=== PATIENT | male | born 1965 | race Caucasian/White ===

== ENCOUNTER → 2016-07-09 | Outpatient (CLI) | payer MEDICARE, BC ==
[2016-07-09 10:48] LABS: Basophils # (A) 0.1 k/uL (0-0.2); Basophils % (A) 1 %; CH 33.8; CHCM 35.4; Eosinophils # (A) 0.3 k/uL (0-0.7); Eosinophils % (A) 3 %; HCT 51.8 % (39.0-53.0); HDW 2.63; HGB 17.6 gm/dL (13.0-17.5); Luc # (Auto) 0.11; Luc % (Auto) 1; Lymphocytes # (A) 2.8 k/uL (1.0-4.8); Lymphocytes % (A) 28 %; MCH 32.5 pg (25.0-35.0); MCHC 33.9 g/dL (31.0-37.0); Mean Platelet Volume 7.4; Monocytes # (A) 0.5 k/uL (0-1.0); Monocytes % (A) 5 %; Neutrophils # (A) 6.2 k/uL (1.3-7.7); Neutrophils % (A) 62 %; RDW 12.6 % (11.5-15.5); WBC (Perox) 10.34
[2016-07-09 11:02] LABS: ALT 154 U/L (21-72); AST 110 U/L (17-59); Alkaline Phosphatase 103 U/L (38-126); Anion Gap 13 mmol/L; Blood Urea Nitrogen 14 mg/dL (9-20); Calcium 9.8 mg/dL (8.4-10.2); Carbon Dioxide 26 mmol/L (22-30); Chloride 104 mmol/L (98-107); Glucose 143 mg/dL (74-99); Non-African American GFR(MDRD) >60 (>60 ml/min/1.73 sqM); Potassium 3.8 mmol/L (3.5-5.1); Sodium 143 mmol/L (137-145); Total Bilirubin 0.8 mg/dL (0.2-1.3); Total Protein 7.5 g/dL (6.3-8.2)
[2016-07-09 11:33] LABS: Hepatitis B Surface Ag Index 0.06
[2016-07-09 11:39] LABS: Hepatitis B Core IgM Index 0.04
[2016-07-09 11:50] LABS: Hepatitis C Virus IgG Index 0.02
[2016-07-09 11:52] LABS: Hepatitis C Virus IgG Ab Negative (Negative)
[2016-07-10 16:00] LABS: LOG HIV Copies/mL <1.60 (<1.60)
== END | disposition home or self-care (01) ==
LOC: LABWHC1 09:52
PROVIDERS: ATTEND Internal Medicine Infectious Disease
DX: B20 Human immunodeficiency virus [HIV] disease (principal)
CPT/HCPCS: 36415; 80053; 80074; 84378; 85025; 86780; 87536

== ENCOUNTER → 2016-12-17 | Outpatient (CLI) | payer MEDICARE, BC ==
[2016-12-17 15:37] LABS: ALT 146 U/L (21-72); AST 124 U/L (17-59); Alkaline Phosphatase 154 U/L (38-126); Anion Gap 18 mmol/L; Blood Urea Nitrogen 12 mg/dL (9-20); Calcium 9.4 mg/dL (8.4-10.2); Carbon Dioxide 19 mmol/L (22-30); Chloride 103 mmol/L (98-107); Glucose 174 mg/dL (74-99); Non-African American GFR(MDRD) >60 (>60 ml/min/1.73 sqM); Potassium 3.7 mmol/L (3.5-5.1); Sodium 140 mmol/L (137-145); Total Bilirubin 0.7 mg/dL (0.2-1.3); Total Protein 7.8 g/dL (6.3-8.2)
[2016-12-17 15:45] LABS: Basophils # (A) 0.1 k/uL (0-0.2); Basophils % (A) 1 %; CH 33.6; CHCM 36.3; Eosinophils # (A) 0.8 k/uL (0-0.7); Eosinophils % (A) 9 %; HCT 45.6 % (39.0-53.0); Luc # (Auto) 0.28; Luc % (Auto) 3; Lymphocytes # (A) 2.5 k/uL (1.0-4.8); Lymphocytes % (A) 26 %; MCH 34.6 pg (25.0-35.0); MCHC 37.3 g/dL (31.0-37.0); MCV 92.9 fL (80.0-100.0); Mean Platelet Volume 6.8; Monocytes # (A) 0.5 k/uL (0-1.0); Monocytes % (A) 5 %; Neutrophils # (A) 5.3 k/uL (1.3-7.7); Neutrophils % (A) 56 %; RBC 4.91 m/uL (4.30-5.90); RDW 12.1 % (11.5-15.5); WBC 9.5 k/uL (3.8-10.6); WBC (Perox) 9.58
[2016-12-18 13:17] LABS: LOG HIV Copies/mL <1.60 (<1.60)
== END | disposition home or self-care (01) ==
LOC: LABWHC1 15:00
PROVIDERS: ATTEND Internal Medicine Infectious Disease
DX: B20 Human immunodeficiency virus [HIV] disease (principal)
CPT/HCPCS: 36415; 80053; 85025; 86360; 87536

== ENCOUNTER → 2017-01-01 | Outpatient (CLI) | payer MEDICARE, BC ==
--- NOTE | 2017-01-02 16:45 | CONS ---
DATE OF SERVICE: 01/01/2017 This patient is a 51-year-old gentleman who has been evaluated in the sleep center for sleep problems. HISTORY OF PRESENT ILLNESS/SLEEP-WAKE EVALUATION: The patient's usual sleep schedule is from around 11 p.m. and he has difficulties falling asleep, but when he falls asleep he may sleep until the next day at 12 noon. No TV in bedroom. He has difficulty taking naps during the day because of anxiety, but sometimes he takes one nap. He has twitching of his legs at night and some episodes of choking. He snores, has episodes of panic attacks, sweating, sleeptalking and sometimes cns-zu-kkyqo movements during sleep with his arms. [place] Sleepiness Scale is 6. Past medical history of positive for: 1. HIV-positive for 20 years. Recently viral load undetectable. CD4 count around 1100, according to the patient. 2. Positive history of anxiety, depression. 3. Hypertension. 4. Acid reflux. 5. Herniated back disc. 6. COPD. PAST SURGICAL HISTORY: Hemorrhoidectomy. SOCIAL HISTORY: Positive for smoking for about 15 years; quit 4 years ago. Alcohol consumption none. On treatment with medical marijuana at bedtime, which helps him fall asleep. REVIEW OF SYSTEMS: No fevers. No double vision. No recent chest pain. No shortness of breath. No abdominal pain. No bleeding episodes. No blood in urine. No seizure episodes. Episodes of anxiety with increasing heart rate. Out- of-dream movements. Sometimes very long periods of sleep, for more than 12 hours. Difficulties paying attention. Problems with memory, concentration, irritability, depression, anxiety. FAMILY HISTORY: Hypertension, heart problems, hyperlipidemia, stroke, arthritis , lung problems, snoring, pneumonia, headaches, insomnia, acid reflux, ulcers, mental illness. MEDICATIONS: 1. Remeron. 2. Fluoxetine. 3. Isentress. 4. Prilosec. 5. Truvada. 6. Amlodipine. 7. Medical marijuana. PHYSICAL EXAM: The patient is a pleasant 51-year-old gentleman without distress. VITAL SIGNS: Blood pressure 138/99, heart rate 140, respiratory rate 20. Height 5 feet 10 inches. Weight 175.2. BMI 25.1. Neck 14-3/4 inches in circumference. Temperature 98.8. Oxygen saturation at room air 96%. GENERAL: A pleasant patient without distress. HEENT: PERRLA. EOMI. Evaluation of oropharynx showed tongue protrudes midline. Moderately low position of soft palate. Nose is slightly asymmetric. Some restriction of nasal breathing. NECK: Supple. No JVD. Thyroid is not palpable. LUNGS: Clear to percussion and to auscultation. Good air exchange. No wheezing or rhonchi. HEART: S1, S2 regular. Significant tachycardia. ABDOMEN: Soft and non-tender. Bowel sounds are present. No organomegaly appreciated. EXTREMITIES: No clubbing or cyanosis. SENIOR BENEFITS MANAGER: Awake, alert and oriented x3. Cranial nerves 2 through 7 are intact. There is no fasciculation or atrophy noted. No focal deficits observed. IMPRESSION: 1. Difficulties initiating sleep secondary to anxiety. 2. Snoring, moderately low position of soft palate, tiredness during the day, restriction of nasal breathing, awakenings with episodes of choking during sleep ; rule out obstructive sleep apnea/hypopnea syndrome. 3. Burning sensation in the feet while falling asleep; possible restless leg syndrome. 4. History of twitching and kicking at night; possible PLMS. 5. Episodes of qrw-uh-[id number] behavior with moving of his hands; possible REM sleep behavioral disorder. 6. Hypertension. 7. Acid reflux. 8. History of herniated disc in the back. 9. Status post hemorrhoidectomy. PLAN: 1. Polysomnography for evaluation of patients breathing during sleep. 2. CPAP/BiPAP titration if sleep study confirms obstructive sleep apnea/ hypopnea syndrome. 3. Preferable position during sleep on the side. 4. No driving if feeling any sleepiness. Patient is aware of civil and criminal liability for unsafe driving. 5. I will see this patient for follow-up visit to explain results of the testing and follow-up plan. 6. Psychological techniques for treatment of insomnia additionally. Thank you very much for referring this patient for consultation. Sincerely, Henri Rhodes. , PhD, FAASM. Diplomat of [employer], Sleep Medicine Board by [employer] Systems Development Manager of [facility]
== END ==
LOC: SLEEP 15:38
PROVIDERS: ATTEND Internal Medicine
DX: G47.9 Sleep disorder, unspecified (principal); R06.83 Snoring; I10 Essential (primary) hypertension; K21.9 Gastro-esophageal reflux disease without esophagitis; F41.9 Anxiety disorder, unspecified; Z98.890 Other specified postprocedural states; Z79.899 Other long term (current) drug therapy
CPT/HCPCS: 99211

== ENCOUNTER → 2017-04-08 | Outpatient (CLI) | payer MEDICARE, BC ==
--- NOTE | 2017-04-08 16:10 | PN ---
PROGRESS NOTE This patient is a 52-year-old gentleman who has been followed in the sleep center for treatment of obstructive sleep apnea-hypopnea syndrome. Recently the patient had a polysomnogram and CPAP titration. We discussed results of the sleep study with the patient in detail. He has severe sleep apnea with apnea-hypopnea index 33.2 with oxygen desaturation to 89%. He was started on treatment with CPAP and uses the equipment. He does have problems with the heated humidity; sometimes he thinks that humidity temperature is too high. I checked his CPAP unit. CPAP pressure is 10 cm of water. Usage is 27/30 nights for more than 4 hours. Average usage is 8.9 hours. Leak is 8 L/minute, which is totally within normal range. Apnea-hypopnea index for the last month is only 2.5. MEDICATIONS: 1. Remeron. 2. Fluoxetine. 3. Isentress. 4. Prilosec. 5. Truvada. 6. Amlodipine. 7. Medical marijuana. PHYSICAL EXAMINATION: Patient is in some distress related to anxiety. VITAL SIGNS: BP 151/86, HR 122, RR 18, weight 178.8, temperature 98.5, oxygen saturation at room air 98%. HEENT: PERRLA, EOMI. Evaluation of oropharynx showed tongue protrudes midline; low position of soft palate. NECK: Supple. No JVD. Thyroid is not palpable. LUNGS: Clear to percussion and to auscultation. Good air exchange. No wheezing or rhonchi. HEART: S1, S2. Tachycardia. ABDOMEN: Soft, non-tender. Bowel sounds present. EXTREMITIES: No clubbing or cyanosis. BUSINESS SERVICES MANAGER: Awake, alert and oriented x3. Cranial nerves 2 to 7 intact. There is no fasciculation or atrophy noted. No focal deficits observed. IMPRESSION: 1. Severe obstructive sleep apnea-hypopnea syndrome, under control with CPAP at 10 cm of water. Patient demonstrated close to 100% compliance with treatment, benefitting from treatment. 2. Severe periodic limb movements during sleep study. 3. History of HIV positive for about 20 years. Recently viral load undetectable. 4. History of anxiety and depression. 5. Hypertension. 6. Acid reflux. 7. Herniated back disc. 8. Chronic obstructive pulmonary disease. PLAN: 1. Patient should continue to use his CPAP equipment every night for the whole night. 2. I will maintain his prescription for all necessary CPAP supplies. 3. No driving if feeling any sleepiness. 4. I will adjust humidifier to the lower level. 5. Follow-up visit in 1 year, or earlier if patient has any problems with usage of CPAP. Thank you very much for allowing me to participate in management of your patient. Sincerely, Henri Rhodes MD, PhD, FAASM Diplomat of [place] [employer] [employer] Boiler Or Engine Operator of [facility] [place] MMODL / IJN: [id number] /
== END ==
LOC: SLEEP 14:00
PROVIDERS: ATTEND Internal Medicine
DX: G47.33 Obstructive sleep apnea (adult) (pediatric) (principal); G47.61 Periodic limb movement disorder; F41.9 Anxiety disorder, unspecified; F32.9 Major depressive disorder, single episode, unspecified; I10 Essential (primary) hypertension; K21.9 Gastro-esophageal reflux disease without esophagitis; J44.9 Chronic obstructive pulmonary disease, unspecified; Z79.899 Other long term (current) drug therapy

== ENCOUNTER → 2017-04-15 | Outpatient (CLI) | payer MEDICARE, BC ==
[2017-04-15 14:09] LABS: ALT 212 U/L (21-72); AST 131 U/L (17-59); Alkaline Phosphatase 183 U/L (38-126); Anion Gap 14 mmol/L; Blood Urea Nitrogen 13 mg/dL (9-20); Calcium 9.9 mg/dL (8.4-10.2); Carbon Dioxide 21 mmol/L (22-30); Chloride 102 mmol/L (98-107); Glucose 345 mg/dL (74-99); Non-African American GFR(MDRD) >60 (>60 ml/min/1.73 sqM); Potassium 4.3 mmol/L (3.5-5.1); Sodium 137 mmol/L (137-145); Total Bilirubin 0.5 mg/dL (0.2-1.3); Total Protein 7.9 g/dL (6.3-8.2)
[2017-04-15 14:23] LABS: Basophils # (A) 0.1 k/uL (0-0.2); Basophils % (A) 1 %; CH 33.7; CHCM 35.1; Eosinophils # (A) 0.2 k/uL (0-0.7); Eosinophils % (A) 3 %; HCT 52.4 % (39.0-53.0); HDW 2.63; HGB 17.5 gm/dL (13.0-17.5); Luc # (Auto) 0.14; Luc % (Auto) 2; Lymphocytes # (A) 2.6 k/uL (1.0-4.8); Lymphocytes % (A) 30 %; MCHC 33.3 g/dL (31.0-37.0); MCV 96.1 fL (80.0-100.0); Mean Platelet Volume 7.1; Monocytes # (A) 0.4 k/uL (0-1.0); Monocytes % (A) 4 %; Neutrophils # (A) 5.1 k/uL (1.3-7.7); Neutrophils % (A) 60 %; RBC 5.45 m/uL (4.30-5.90); RDW 12.8 % (11.5-15.5); WBC 8.4 k/uL (3.8-10.6); WBC (Perox) 7.83
[2017-04-16 15:04] LABS: LOG HIV Copies/mL <1.60 (<1.60)
== END | disposition home or self-care (01) ==
LOC: LABWHC1 13:10
PROVIDERS: ATTEND Internal Medicine Infectious Disease
DX: B20 Human immunodeficiency virus [HIV] disease (principal)
CPT/HCPCS: 36415; 80053; 80074; 85025; 86360; 87536

== ENCOUNTER → 2017-05-26 | Outpatient (CLI) | payer MEDICARE, BC ==
[2017-05-26 11:31] LABS: ALT 178 U/L (21-72); AST 139 U/L (17-59); Alkaline Phosphatase 94 U/L (38-126); Anion Gap 14 mmol/L; Blood Urea Nitrogen 15 mg/dL (9-20); Calcium 9.9 mg/dL (8.4-10.2); Carbon Dioxide 22 mmol/L (22-30); Chloride 103 mmol/L (98-107); Glucose 185 mg/dL (74-99); Non-African American GFR(MDRD) >60 (>60 ml/min/1.73 sqM); Potassium 3.7 mmol/L (3.5-5.1); Sodium 139 mmol/L (137-145)
== END | disposition home or self-care (01) ==
LOC: LABWHC1 10:45
PROVIDERS: ATTEND Internal Medicine Infectious Disease
DX: B20 Human immunodeficiency virus [HIV] disease (principal)
CPT/HCPCS: 36415; 80053

== ENCOUNTER → 2017-08-18 | Outpatient (CLI) | payer MEDICARE, BC ==
[2017-08-18 07:02] LABS: ALT 118 U/L (21-72); AST 80 U/L (17-59); Albumin 4.3 g/dL (3.5-5.0); Alkaline Phosphatase 76 U/L (38-126); Anion Gap 13 mmol/L; Blood Urea Nitrogen 16 mg/dL (9-20); Calcium 9.8 mg/dL (8.4-10.2); Carbon Dioxide 27 mmol/L (22-30); Chloride 105 mmol/L (98-107); Cholesterol 239 mg/dL (<200); Glucose 124 mg/dL (74-99); HDL Cholesterol 46 mg/dL (40-60); LDL Cholesterol,Calculated 152 mg/dL (0-99); Sodium 145 mmol/L (137-145); Total Bilirubin 0.6 mg/dL (0.2-1.3); Triglycerides 204 mg/dL (<150)
[2017-08-18 07:07] LABS: Potassium 4.3 mmol/L (3.5-5.1)
[2017-08-18 12:25] LABS: Hemoglobin A1C 6.6 % (4.0-6.0)
== END | disposition home or self-care (01) ==
LOC: LABWHC1 06:32
PROVIDERS: ATTEND Internal Medicine Endocrinology, Diabetes & Metabolism
DX: E11.65 Type 2 diabetes mellitus with hyperglycemia (principal)
CPT/HCPCS: 36415; 80053; 80061; 82043; 82570; 83036

== ENCOUNTER → 2017-09-04 | Outpatient (CLI) | payer MEDICARE, BC ==
[2017-09-04 16:28] LABS: Basophils # (A) 0.1 k/uL (0-0.2); Basophils % (A) 1 %; Eosinophils # (A) 0.3 k/uL (0-0.7); Eosinophils % (A) 3 %; HCT 46.7 % (39.0-53.0); HGB 16.1 gm/dL (13.0-17.5); Lymphocytes # (A) 3.2 k/uL (1.0-4.8); Lymphocytes % (A) 30 %; MCH 32.2 pg (25.0-35.0); MCHC 34.4 g/dL (31.0-37.0); MCV 93.8 fL (80.0-100.0); Mean Platelet Volume 7.1; Monocytes # (A) 0.6 k/uL (0-1.0); Monocytes % (A) 5 %; Neutrophils # (A) 6.2 k/uL (1.3-7.7); Neutrophils % (A) 59 %; Platelet Count 296 k/uL (150-450); RBC 4.99 m/uL (4.30-5.90); RDW 12.2 % (11.5-15.5); WBC 10.4 k/uL (3.8-10.6)
[2017-09-04 17:01] LABS: ALT 166 U/L (21-72); AST 125 U/L (17-59); Albumin 4.6 g/dL (3.5-5.0); Alkaline Phosphatase 71 U/L (38-126); Anion Gap 12 mmol/L; Blood Urea Nitrogen 18 mg/dL (9-20); Carbon Dioxide 26 mmol/L (22-30); Chloride 103 mmol/L (98-107); Glucose 109 mg/dL (74-99); Potassium 4.2 mmol/L (3.5-5.1); Sodium 141 mmol/L (137-145); Total Bilirubin 0.6 mg/dL (0.2-1.3); Total Protein 7.5 g/dL (6.3-8.2)
[2017-09-05 07:50] LABS: T4/T8 Ratio (CD4:CD8) 1.8 (1.0-3.7)
[2017-09-08 08:29] LABS: HIV-1 RNA Not detected (Not detected); HIV-1 RNA, Quant <40 Copies/mL (<40)
== END ==
LOC: LABWHC1 16:04
PROVIDERS: ATTEND Internal Medicine Infectious Disease
DX: B20 Human immunodeficiency virus [HIV] disease (principal)
CPT/HCPCS: 36415; 80053; 85025; 86360; 87536

== ENCOUNTER → 2018-04-15 | Outpatient (CLI) | payer MEDICARE, BC ==
[2018-04-15 11:30] LABS: Basophils # (A) 0.1 k/uL (0-0.2); Basophils % (A) 1 %; Eosinophils # (A) 0.3 k/uL (0-0.7); Eosinophils % (A) 4 %; HCT 50.3 % (39.0-53.0); Lymphocytes % (A) 29 %; MCH 32.5 pg (25.0-35.0); MCHC 33.8 g/dL (31.0-37.0); MCV 95.9 fL (80.0-100.0); Monocytes # (A) 0.4 k/uL (0-1.0); Monocytes % (A) 6 %; Neutrophils # (A) 4.2 k/uL (1.3-7.7); Neutrophils % (A) 59 %; Platelet Count 248 k/uL (150-450); RBC 5.24 m/uL (4.30-5.90); RDW 12.2 % (11.5-15.5); WBC 7.1 k/uL (3.8-10.6)
[2018-04-15 11:40] LABS: ALT 145 U/L (21-72); AST 127 U/L (17-59); Albumin 4.5 g/dL (3.5-5.0); Alkaline Phosphatase 105 U/L (38-126); Anion Gap 10 mmol/L; Blood Urea Nitrogen 17 mg/dL (9-20); Carbon Dioxide 23 mmol/L (22-30); Chloride 104 mmol/L (98-107); Cholesterol 234 mg/dL (<200); Glucose 228 mg/dL (74-99); HDL Cholesterol 42 mg/dL (40-60); LDL Cholesterol,Calculated 142 mg/dL (0-99); Potassium 4.3 mmol/L (3.5-5.1); Sodium 137 mmol/L (137-145); Total Bilirubin 0.7 mg/dL (0.2-1.3); Total Protein 7.3 g/dL (6.3-8.2); Triglycerides 252 mg/dL (<150)
[2018-04-16 09:22] LABS: T4/T8 Ratio (CD4:CD8) 1.5 (1.0-3.7)
[2018-04-16 13:47] LABS: HIV-1 RNA Not detected (Not detected); HIV-1 RNA, Quant <40 Copies/mL (<40)
== END ==
LOC: LABWHC1 10:57
PROVIDERS: ATTEND Internal Medicine Endocrinology, Diabetes & Metabolism
DX: B20 Human immunodeficiency virus [HIV] disease (principal); E11.65 Type 2 diabetes mellitus with hyperglycemia
CPT/HCPCS: 36415; 80053; 80061; 82043; 82570; 83036; 85025; 86360; 87536

== ENCOUNTER → 2018-04-29 | Outpatient (CLI) | payer MEDICARE, BC ==
--- NOTE | 2018-04-29 16:36 | PN ---
PROGRESS NOTE DATE OF SERVICE: 04/29/2019 This patient is a 53-year-old gentleman who has been followed in the sleep center for treatment of obstructive sleep apnea-hypopnea syndrome presently. I saw the patient one year ago. At that time patient demonstrated great compliance with treatment with CPAP and did not have significant problem. Presently he has a full-face mask but cannot use it. He has discomfort with that and has difficulties with exhalation. MEDICATIONS: 1. Remeron. 2. Fluoxetine. 3. Prilosec. 4. Amlodipine. [place] Sleepiness Scale today is 11. PHYSICAL EXAMINATION: GENERAL: A pleasant patient in no distress. VITAL SIGNS: BP 149/98, HR around 100, RR 16, height 5 feet 8-1/2 inches, weight 181, body mass index 27.1, temperature 97.4, oxygen saturation at room air 95%. HEENT: PERRLA, EOMI. Evaluation of oropharynx showed tongue protrudes midline. Low position of soft palate. NECK: Supple. No JVD. Thyroid is not palpable. LUNGS: Clear to percussion and to auscultation. Good air exchange. No wheezing or rhonchi. HEART: S1, S2 regular. No murmurs, gallops or rubs. ABDOMEN: Soft and nontender. Bowel sounds are present. No organomegaly. EXTREMITIES: No clubbing or cyanosis. JAILER: Awake, alert, and oriented X3. Cranial nerves 2 to 7 intact. There is no fasciculation or atrophy. noted. No focal deficits observed. IMPRESSION: 1. Obstructive sleep apnea-hypopnea syndrome in severe range. Presently patient has some difficulties with using CPAP. 2. History of HIV positive for about 20 years. 3. History of anxiety and depression. 4. Hypertension. 5. Acid reflux. 6. History of chronic obstructive pulmonary disease. 7. Back problems. I reviewed results of the previous CPAP titration. PLAN: 1. I decreased pressure in the machine to 9 cm of water. 2. I increased time of RAMP to 45 minutes. 3. Patient was fitted with a nasal pillow mask. 4. Patient will continue to use CPAP equipment every night with a nasal pillow mask and chinstrap. 5. No driving if feeling any sleepiness. 6. Sleep hygiene with regular time in bed for at least 8 hours. Thank you very much for allowing me to participate in the management of your patient. Sincerely, Henri Rhodes MD, PhD, FAASM Diplomat of [place] [employer] [place] [employer] Medicine Manager Wireless of [facility] [place] MMLILY / JOSE A: [id number] /
== END | disposition home or self-care (01) ==
LOC: SLEEP 15:05
PROVIDERS: ATTEND Internal Medicine
DX: G47.33 Obstructive sleep apnea (adult) (pediatric) (principal); I10 Essential (primary) hypertension; F32.9 Major depressive disorder, single episode, unspecified; F41.9 Anxiety disorder, unspecified; K21.9 Gastro-esophageal reflux disease without esophagitis; M53.9 Dorsopathy, unspecified; Z21 Asymptomatic human immunodeficiency virus [HIV] infection status; Z87.09 Personal history of other diseases of the respiratory system; Z99.89 Dependence on other enabling machines and devices; Z79.899 Other long term (current) drug therapy

== ENCOUNTER → 2018-07-09 | Outpatient (CLI) | payer MEDICARE, BC ==
[2018-07-09 13:30] LABS: Basophils # (A) 0.1 k/uL (0-0.2); Basophils % (A) 1 %; Eosinophils # (A) 0.2 k/uL (0-0.7); Eosinophils % (A) 2 %; HCT 48.4 % (39.0-53.0); Lymphocytes % (A) 20 %; MCH 31.6 pg (25.0-35.0); MCV 95.7 fL (80.0-100.0); Mean Platelet Volume 6.7; Monocytes # (A) 0.5 k/uL (0-1.0); Monocytes % (A) 5 %; Neutrophils % (A) 71 %; Platelet Count 275 k/uL (150-450); RBC 5.06 m/uL (4.30-5.90); RDW 12.8 % (11.5-15.5)
[2018-07-09 20:26] LABS: Albumin 4.7 g/dL (3.80-4.90); Albumin/Globulin Ratio 2.47 (1.20-2.10); Anion Gap 11.6 mmol/L (4.00-12.00); Calcium 9.6 mg/dL (8.7-10.3); Carbon Dioxide 23.4 mmol/L (21.6-31.8); Globulin 1.9 g/dL (1.6-3.3); Potassium 4.2 mmol/L (3.5-5.5); Total Bilirubin 0.4 mg/dL (0.2-1.2); Total Protein 6.6 g/dL (6.2-8.2)
[2018-07-12 14:37] LABS: HIV-1 RNA Not detected (Not detected); HIV-1 RNA, Quant <40 Copies/mL (<40)
== END ==
LOC: LABWHC1 12:40
PROVIDERS: ATTEND Internal Medicine Infectious Disease
DX: B20 Human immunodeficiency virus [HIV] disease (principal)
CPT/HCPCS: 36415; 80053; 85025; 86360; 87536

== ENCOUNTER → 2018-08-16 | Outpatient (CLI) | payer MEDICARE, BC ==
[2018-08-16 18:41] LABS: Albumin 4.5 g/dL (3.80-4.90); Albumin/Globulin Ratio 2.37 (1.60-3.17); Anion Gap 8.8 mmol/L (4.00-12.00); Calcium 9.7 mg/dL (8.7-10.3); Carbon Dioxide 26.2 mmol/L (21.6-31.8); Globulin 1.9 g/dL (1.6-3.3); LDL Cholesterol,Calculated 119.4 mg/dL (0.0-131.0); Potassium 4.6 mmol/L (3.5-5.5); Total Bilirubin 0.5 mg/dL (0.3-1.2); Total Protein 6.4 g/dL (6.2-8.2); VLDL Calculation 63.6 mg/dL (5.00-40.00)
[2018-08-16 18:55] LABS: Hemoglobin A1C 7.9 % (4.0-6.0)
== END | disposition home or self-care (01) ==
LOC: LABWHC1 09:18
PROVIDERS: ATTEND Internal Medicine Endocrinology, Diabetes & Metabolism
DX: E11.65 Type 2 diabetes mellitus with hyperglycemia (principal)
CPT/HCPCS: 36415; 80053; 80061; 82043; 82570; 83036; 84443

== ENCOUNTER → 2018-10-21 | Outpatient (CLI) | payer MEDICARE, BC | END | disposition home or self-care (01) | LOC: LABWHC1 08:08 | PROVIDERS: ATTEND Internal Medicine Infectious Disease | DX: E11.9 Type 2 diabetes mellitus without complications (principal) | CPT/HCPCS: 36415; 82947 ==

== ENCOUNTER → 2018-11-15 | Outpatient (CLI) | payer MEDICARE, BC ==
[2018-11-15 12:13] LABS: Basophils % (A) 1 %; Eosinophils # (A) 0.2 k/uL (0-0.7); Eosinophils % (A) 3 %; HGB 15.3 gm/dL (13.0-17.5); Lymphocytes # (A) 1.7 k/uL (1.0-4.8); Lymphocytes % (A) 25 %; MCH 31.9 pg (25.0-35.0); MCHC 32.5 g/dL (31.0-37.0); MCV 98.2 fL (80.0-100.0); Mean Platelet Volume 6.9; Monocytes # (A) 0.3 k/uL (0-1.0); Monocytes % (A) 5 %; Neutrophils # (A) 4.3 k/uL (1.3-7.7); Neutrophils % (A) 65 %; Platelet Count 285 k/uL (150-450); RBC 4.79 m/uL (4.30-5.90); RDW 12.5 % (11.5-15.5); WBC 6.6 k/uL (3.8-10.6)
[2018-11-15 17:31] LABS: Albumin 4.8 g/dL (3.80-4.90); Albumin/Globulin Ratio 2.82 (1.60-3.17); Calcium 9.8 mg/dL (8.7-10.3); Globulin 1.7 g/dL (1.6-3.3); Potassium 4.5 mmol/L (3.5-5.5); Total Bilirubin 0.4 mg/dL (0.3-1.2); Total Protein 6.5 g/dL (6.2-8.2)
[2018-11-16 12:26] LABS: T4/T8 Ratio (CD4:CD8) 1.7 (1.0-3.7)
[2018-11-17 13:49] LABS: HIV-1 RNA Not detected (Not detected); HIV-1 RNA, Quant <40 Copies/mL (<40)
== END ==
LOC: LABWHC1 11:06
PROVIDERS: ATTEND Internal Medicine Infectious Disease
DX: B20 Human immunodeficiency virus [HIV] disease (principal)
CPT/HCPCS: 36415; 80053; 85025; 86360; 87536

== ENCOUNTER → 2019-02-09 | Outpatient (CLI) | payer MEDICARE, BC ==
--- NOTE | 2019-02-15 18:32 | ENG ---
ELECTRONYSTAGMOGRAM REPORT DATE OF SERVICE: 02/09/2019. VNG INDICATIONS: Vertigo ongoing 3 years, gradual, getting worse, lasting for 3-5 minutes at a time, occurring 5-6 times per day. Positional changes all affect and can trigger the vertigo. Denies any difficulty with hearing. Has bilateral tinnitus and popping of the jaw. Tonight this is steady. He has feeling of fullness or pressure in the ears bilaterally. VNG FINDINGS: Saccades shows intact peak velocities, accuracies and latencies. Gaze with fixation shows no nystagmus in any of the directions of gaze, including centrally with vision denied. Tracking shows mild breakups at faster speeds and intact at slower speeds. Optokinetic nystagmus shows no significant asymmetries. Static position testing in 6 different positions with eyes open and with vision denied shows no significant nystagmus. Odilia-Hallpike maneuvers were not done due to mobility, neck and back pain. Caloric testing showed a total of 10 degrees response from the right and 9 degrees response from the left. There was borderline bilateral caloric weakness. IMPRESSIONS: 1. Borderline bilateral caloric weakness. This needs to be confirmed by another test, such as head thrust test or, if available, active and passive rotational testing to confirm bilateral vestibular dysfunction. 2. Tracking mildly impaired, which is a feature to suggest possible central nervous system dysfunction, but other features of this VNG are unremarkable. 3. Odilia-Hallpike maneuvers were not able to be performed, so patient was not tested for benign positional vertigo. MMODRachel / IJN: [id number] /
== END | disposition home or self-care (01) ==
LOC: NEUROMAIN 08:49
PROVIDERS: ATTEND Psychiatry & Neurology Neurology
DX: R42 Dizziness and giddiness (principal)
CPT/HCPCS: 92537; 92540

== ENCOUNTER → 2019-02-14 | Outpatient (CLI) | payer MEDICARE, BC ==
--- NOTE | 2019-02-14 10:35 | MR ---
MRI CERVICAL SPINE: CLINICAL HISTORY: Cervical myelopathy per order. Neck pain and dizziness per patient. TECHNIQUE: Multiplanar, multisequence imaging of the cervical spine is performed without IV contrast. COMPARISON: None. FINDINGS: Exam suboptimal due to patient motion despite repeated sequences. Sagittal images of the ce rvical spine show the craniocervical junction to appear within normal limits. The cervical and upper thoracic spinal cord is normal in caliber. On both sagittal series 601 image 8 and series 41 image 8 there is increased signal centered C6 level which does not reproduce while on axial images. Cannot exclude abnormal signal at this level. There is grade 1 retrolisthesis C5 on C6. The vertebral body height are normal. Mild disc space narrowing C5-C6 level is present. Mild multilevel anterior spurri ng is seen. Posterior disc herniations efface the anterior thecal sac C3-C4 through C6-C7 levels on s agittal images. The bone marrow signal intensity is within normal limits. Coronal images show dextroc onvex scoliotic curvature centered mid to lower cervical spine with reactive levoconvex scoliotic cur vature in the thoracic spine. Axial images show the C2-C3 level to appear within normal limits. Axial images at C3-C4 level shows broad-based right paracentral/central disc protrusion effacing vent ral thecal sac and causing asymmetric mild right-sided neural foraminal narrowing. Axial images at the C4-C5 levels show broad-based left paracentral/foraminal disc protrusion effacing anterolateral thecal sac and causing moderate to severe left-sided neural foraminal narrowing. Axial images at C5-C6 level show larger posterior spur disc complex effacing anterior thecal sac and causing advanced left greater than right bilateral neural foraminal narrowing. Axial images at C6-C7 level shows central disc protrusion effacing anterior thecal sac and causing mi ld to moderate left greater than right bilateral neural foraminal narrowing. Axial images at C7-T1 level are within normal limits. IMPRESSION: Suboptimal study. Cannot exclude abnormal cord signal or myelomalacia centered C6 vertebr a. Scoliosis is present. Multilevel degenerative changes C3-C4 through C6-C7 level with spondylolisth esis and most prominent degenerative changes noted C5-C6 level. Further details as discussed above.
== END | disposition home or self-care (01) ==
LOC: RADMRIMAIN 08:20
PROVIDERS: ATTEND Psychiatry & Neurology Neurology
DX: M48.02 Spinal stenosis, cervical region (principal); M43.12 Spondylolisthesis, cervical region; M50.21 Other cervical disc displacement, high cervical region; M47.812 Spondylosis without myelopathy or radiculopathy, cervical region; M41.82 Other forms of scoliosis, cervical region
CPT/HCPCS: 72141

== ENCOUNTER → 2019-03-24 | Outpatient (CLI) | payer MEDICARE, BC ==
--- NOTE | 2019-03-25 10:05 | MR ---
EXAMINATION TYPE: MR brain wo/w con DATE OF EXAM: 03/24/2019 COMPARISON: NONE HISTORY: Abn vestibular function study. Memory loss. Patient describes dizziness, shakiness, and forg etfulness. 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 TECHNIQUE: Multiplanar, multisequence images of the brain and brainstem is performed without and with IV contras t, utilizing 7 mL intravenous Gadavist . FINDINGS: Diffusion weighted images demonstrate no evidence of a recent infarct or other diffusion ab normality. There is no extra-axial fluid collection. Mild confluent T2/FLAIR hyperintensity is seen within the subcortical white matter of the periventricular region most notable on FLAIR and axial fat sat image 22 posteriorly. There is relative sparing of the subcortical white matter and no abnormal enhancement. This is overall symmetric. The ventricular system and cisternal spaces are symmetrically prominent compatible with mild degree age-related volume loss. The brain volume is age appropriate. Midline structures demonstrate normal morphology. The craniocervical junction appears within normal limits. Post contrast images demonstrate no abnormal enhancement. The dural venous sinuses appear pa tent. There is a 1.0 cm polyp versus mucosal retention cysts of the medial wall of the right maxillar y sinus. Mild left nasal septal deviation is seen. There is mild mucosal thickening in a circumferent ial of the left maxillary sinus and within the ethmoid sinuses. The remaining visualized paranasal si nuses and mastoid air cells are well aerated. There is mild symmetric enhancement of the bilateral intracanalicular portions of the 7th and 8th sealer aircraft nial nerve complexes. This is linear without focal mass. No schwannoma or cerebellar pontine angle ma ss is seen. Punctate focus of enhancement at the pontomedullary junction on axial postcontrast image 6 and sagittal image 74 appears to represent a deep artery and appears extra-axial on sagittal imagin g. IMPRESSION: 1. Mild periventricular white matter change that is symmetric and the parietal lobes. Given this brittani ent's history of HIV possibilities do include HIV encephalopathy although this is nonspecific and can be seen in other demyelinating disorders or simply sequela of chronic microangiopathy. This is very mild in degree and no other findings of HIV-associated dementia are seen on MRI. The degree of cerebr al atrophy is in keeping with the patient's age and mild. With a history of CMV and toxoplasmosis no ring-enhancing lesions are seen. No abnormal intracranial enhancement. 2. No acute infarct, midline shift, nor mass effect. 3. Long segment overall symmetric mild enhancement of the 7th and 8th cranial nerve complexes that is linear related to nonspecific neuritis. No focal mass to suggest schwannoma/acoustic neuroma.
== END | disposition home or self-care (01) ==
LOC: RADMRIMAIN 12:33
PROVIDERS: ATTEND Psychiatry & Neurology Neurology
DX: G31.1 Senile degeneration of brain, not elsewhere classified (principal); R90.89 Other abnormal findings on diagnostic imaging of central nervous system; Z86.19 Personal history of other infectious and parasitic diseases
CPT/HCPCS: 70553; A9585

== ENCOUNTER → 2019-05-09 | Outpatient (CLI) | payer MEDICARE, BC ==
[2019-05-09 15:19] LABS: Basophils # (A) 0.1 k/uL (0-0.2); Basophils % (A) 1 %; Eosinophils # (A) 0.3 k/uL (0-0.7); Eosinophils % (A) 3 %; HCT 45.6 % (39.0-53.0); HGB 15.6 gm/dL (13.0-17.5); Lymphocytes # (A) 2.1 k/uL (1.0-4.8); Lymphocytes % (A) 21 %; MCH 33.4 pg (25.0-35.0); MCHC 34.2 g/dL (31.0-37.0); MCV 97.6 fL (80.0-100.0); Mean Platelet Volume 6.1; Monocytes # (A) 0.4 k/uL (0-1.0); Monocytes % (A) 4 %; Neutrophils # (A) 6.7 k/uL (1.3-7.7); Neutrophils % (A) 69 %; Platelet Count 290 k/uL (150-450); RBC 4.67 m/uL (4.30-5.90); RDW 12.2 % (11.5-15.5); WBC 9.7 k/uL (3.8-10.6)
[2019-05-09 21:26] LABS: Albumin 4.8 g/dL (3.80-4.90); Albumin/Globulin Ratio 2.53 (1.60-3.17); Anion Gap 11.5 mmol/L (4.00-12.00); BUN/Creat Ratio 12.73 Ratio (12.00-20.00); Carbon Dioxide 24.5 mmol/L (21.6-31.8); Globulin 1.9 g/dL (1.6-3.3); Potassium 3.7 mmol/L (3.5-5.5); Total Bilirubin 0.4 mg/dL (0.2-1.2); Total Protein 6.7 g/dL (6.2-8.2)
[2019-05-10 13:43] LABS: HIV-1 RNA DETECTED (Not detected); HIV-1 RNA, Quant <40 Copies/mL (<40)
== END ==
LOC: LABWHC1 14:32
PROVIDERS: ATTEND Internal Medicine Infectious Disease
DX: E11.9 Type 2 diabetes mellitus without complications (principal); B20 Human immunodeficiency virus [HIV] disease
CPT/HCPCS: 36415; 80053; 85025; 86360; 87536

== ENCOUNTER 2019-12-24 14:27 | Emergency (ER) | payer MEDICARE, BC ==
[2019-12-24 14:47] VITALS: TEMP 98.5
[2019-12-24] MEDS ORDERED: MECLIZINE 12.5 MG TAB PO STA (15:00)
[2019-12-24] MEDS ORDERED: SODIUM CHLORIDE 0.9% 1,000 ML IV STA (15:00)
--- NOTE | 2019-12-24 15:05 | ED ---
General Adult HPI - General Chief complaint: Dizziness Stated complaint: Dizziness Time Seen by Provider: 12/24/19 14:54 Source: patient, RN notes reviewed, old records reviewed Mode of arrival: ambulatory Limitations: no limitations - History of Present Illness Initial comments: 54 -year-old male presents for evaluation of dizziness, lightheadedness. Patient states he has chronic dizziness, follows with neurology on regular basis. He states over the past 2 days this has been worse, similar in character but more severe. He was seen at [facility] and sent to the emergency department for evaluation. Patient had fallen 2 days ago with minor head injury. Denies loss of consciousness. Denies chest pain. Denies abdominal pain. He's had several episodes of vomiting associated with this dizzy spells. - Related Data Home Medications Medication Instructions Recorded Confirmed FLUoxetine HCL [PROzac] 40 mg PO BID 01/12/14 12/24/19 Mirtazapine [Remeron] 15 mg PO HS 01/12/14 12/24/19 Omeprazole [PriLOSEC] 40 mg PO DAILY 01/12/14 12/24/19 Allergies Allergy/AdvReac Type Severity Reaction Status Date / Time No Known Allergies Allergy Verified 12/24/19 16:21 Review of Systems ROS Statement: Those systems with pertinent positive or pertinent negative responses have been documented in the HPI. ROS Other: All systems not noted in ROS Statement are negative. Past Medical History Past Medical History: COPD, Diabetes Mellitus, GERD/Reflux, Hypertension Additional Past Medical History / Comment(s): HIV positive History of Any Multi-Drug Resistant Organisms: None Reported Past Surgical History: Tonsillectomy Additional Past Surgical History / Comment(s): HEMORRIOD BANDED Past Anesthesia/Blood Transfusion Reactions: No Reported Reaction Past Psychological History: ADD/ADHD, Anxiety, Bipolar, Depression, Panic Disorder Smoking Status: Current every day smoker Past Alcohol Use History: None Reported Past Drug Use History: Marijuana - Past Family History Father Family Medical History: CVA/TIA, Hypertension Mother Family Medical History: Hypertension General Exam Limitations: no limitations General appearance: alert, in no apparent distress Head exam: Present: atraumatic, normocephalic Eye exam: Present: normal appearance, PERRL, EOMI ENT exam: Present: mucous membranes dry Neck exam: Present: normal inspection. Absent: tenderness, meningismus Respiratory exam: Present: normal lung sounds bilaterally. Absent: respiratory distress, wheezes Cardiovascular Exam: Present: regular rate, normal rhythm GI/Abdominal exam: Present: soft. Absent: distended, tenderness, guarding Extremities exam: Present: normal inspection, normal capillary refill. Absent: pedal edema, calf tenderness Back exam: Present: normal inspection. Absent: full ROM, tenderness Neurological exam: Present: alert, oriented X3, CN II-XII intact. Absent: motor sensory deficit (No ataxia, normal [id number] bilaterally) Psychiatric exam: Present: normal affect, normal mood Skin exam: Present: warm, dry, intact. Absent: cyanosis, diaphoretic Course Vital Signs 12/24/19 12/24/19 14:43 16:02 Temperature 98.5 F Pulse Rate 93 86 Respiratory 18 16 Rate Blood Pressure 171/107 159/98 O2 Sat by Pulse 98 98 Oximetry EKG Findings - EKG Comments: EKG Findings:: EKG: Normal sinus rhythm, rate of 88, TN interval 172, QRS duration 92, QTC 471, no ST segment elevation. Medical Decision Making - Medical Decision Making 54-year-old male with dizziness, chronic dizziness, nonfocal neurologic exam with stable vitals. EKG sinus rhythm. Head CT is performed because the patient had head trauma 2 days ago this is negative for intracranial hemorrhage or mass effect. Patient has a CBC showing mild leukocytosis of uncertain etiology. He has no fever or infectious symptoms. I did inform the patient of this testing will monitor for infectious symptoms. He has normal electrolytes, mildly elevated blood glucose. Urinalysis showing glucose and ketones. He does appear dehydrated on exam and after IV fluids and meclizine he is feeling much better. States she has some mild dizziness which is at baseline for him. His. Vision is resolved. He feels quite well and is eager for discharge. He will follow-up with his neurologist as an outpatient. - Lab Data Result diagrams: 12/24/19 14:56 12/24/19 14:56 Lab Results 12/24/19 12/24/19 12/24/19 Range/Units 14:56 14:56 14:56 WBC 14.4 H (3.8-10.6) k/uL RBC 4.78 (4.30-5.90) m/uL Hgb 16.6 (13.0-17.5) gm/dL Hct 47.6 (39.0-53.0) % MCV 99.5 (80.0-100.0) fL MCH 34.6 (25.0-35.0) pg MCHC 34.8 (31.0-37.0) g/dL RDW 12.4 (11.5-15.5) % Plt Count 282 (150-450) k/uL Neutrophils % 90 % Lymphocytes % 6 % Monocytes % 2 % Eosinophils % 1 % Basophils % 0 % Neutrophils # 13.0 H (1.3-7.7) k/uL Lymphocytes # 0.9 L (1.0-4.8) k/uL Monocytes # 0.3 (0-1.0) k/uL Eosinophils # 0.1 (0-0.7) k/uL Basophils # 0.1 (0-0.2) k/uL Sodium 140 (137-145) mmol/L Potassium 3.9 (3.5-5.1) mmol/L Chloride 103 (98-107) mmol/L Carbon Dioxide 24 (22-30) mmol/L Anion Gap 13 mmol/L BUN 15 (9-20) mg/dL Creatinine 0.94 (0.66-1.25) mg/dL Est GFR (CKD-EPI)AfAm >90 (>60 ml/min/1.73 sqM) Est GFR (CKD-EPI)NonAf >90 (>60 ml/min/1.73 sqM) Glucose 169 H (74-99) mg/dL Calcium 10.0 (8.4-10.2) mg/dL Total Bilirubin 0.7 (0.2-1.3) mg/dL AST 39 (17-59) U/L ALT 32 (4-49) U/L Alkaline Phosphatase 121 (38-126) U/L Troponin I <0.012 (0.000-0.034) ng/mL Total Protein 7.9 (6.3-8.2) g/dL Albumin 4.9 (3.5-5.0) g/dL Urine Color Urine Appearance (Clear) Urine pH (5.0-8.0) Ur Specific [place] (1.001-1.035) Urine Protein (Negative) Urine Glucose (UA) (Negative) Urine Ketones (Negative) Urine Blood (Negative) Urine Nitrite (Negative) Urine Bilirubin (Negative) Urine Urobilinogen (<2.0) mg/dL Ur Leukocyte Esterase (Negative) 12/24/19 Range/Units 15:58 WBC (3.8-10.6) k/uL RBC (4.30-5.90) m/uL Hgb (13.0-17.5) gm/dL Hct (39.0-53.0) % MCV (80.0-100.0) fL MCH (25.0-35.0) pg MCHC (31.0-37.0) g/dL RDW (11.5-15.5) % Plt Count (150-450) k/uL Neutrophils % % Lymphocytes % % Monocytes % % Eosinophils % % Basophils % % Neutrophils # (1.3-7.7) k/uL Lymphocytes # (1.0-4.8) k/uL Monocytes # (0-1.0) k/uL Eosinophils # (0-0.7) k/uL Basophils # (0-0.2) k/uL Sodium (137-145) mmol/L Potassium (3.5-5.1) mmol/L Chloride (98-107) mmol/L Carbon Dioxide (22-30) mmol/L Anion Gap mmol/L BUN (9-20) mg/dL Creatinine (0.66-1.25) mg/dL Est GFR (CKD-EPI)AfAm (>60 ml/min/1.73 sqM) Est GFR (CKD-EPI)NonAf (>60 ml/min/1.73 sqM) Glucose (74-99) mg/dL Calcium (8.4-10.2) mg/dL Total Bilirubin (0.2-1.3) mg/dL AST (17-59) U/L ALT (4-49) U/L Alkaline Phosphatase (38-126) U/L Troponin I (0.000-0.034) ng/mL Total Protein (6.3-8.2) g/dL Albumin (3.5-5.0) g/dL Urine Color Light Yellow Urine Appearance Clear (Clear) Urine pH 7.5 (5.0-8.0) Ur Specific [place] 1.006 (1.001-1.035) Urine Protein Negative (Negative) Urine Glucose (UA) 1+ H (Negative) Urine Ketones Trace H (Negative) Urine Blood Negative (Negative) Urine Nitrite Negative (Negative) Urine Bilirubin Negative (Negative) Urine Urobilinogen <2.0 (<2.0) mg/dL Ur Leukocyte Esterase Negative (Negative) Disposition Clinical Impression: Dehydration, Vertigo Disposition: HOME SELF-CARE Condition: Good Instructions (If sedation given, give patient instructions): Dizziness (ED), Dehydration (ED) Is patient prescribed a controlled substance at d/c from ED?: No Referrals: Nonstaff,Physician [Primary Care Provider] - 1-2 days Salvador Conrad DO [STAFF PHYSICIAN] - 1-2 days Time of Disposition: 16:26
[2019-12-24 15:14] LABS: Basophils # (A) 0.1 k/uL (0-0.2); Basophils % (A) 0 %; Eosinophils # (A) 0.1 k/uL (0-0.7); Eosinophils % (A) 1 %; HCT 47.6 % (39.0-53.0); HGB 16.6 gm/dL (13.0-17.5); Lymphocytes # (A) 0.9 k/uL (1.0-4.8); Lymphocytes % (A) 6 %; MCH 34.6 pg (25.0-35.0); MCHC 34.8 g/dL (31.0-37.0); MCV 99.5 fL (80.0-100.0); Mean Platelet Volume 7.1; Monocytes # (A) 0.3 k/uL (0-1.0); Monocytes % (A) 2 %; Neutrophils % (A) 90 %; Platelet Count 282 k/uL (150-450); RBC 4.78 m/uL (4.30-5.90); RDW 12.4 % (11.5-15.5); WBC 14.4 k/uL (3.8-10.6)
--- NOTE | 2019-12-24 15:35 | CT ---
EXAMINATION TYPE: CT brain wo con DATE OF EXAM: 12/24/2019 COMPARISON: None HISTORY: Dizziness with headache. CT DLP: 1143.4 mGycm Automated exposure control for dose reduction was used. Ventricles and sulci appear normal. There is no mass effect nor midline shift. There is no sign of in tracranial hemorrhage. There is no evidence of cerebral edema. The calvarium is intact. IMPRESSION: Negative unenhanced head CT scan.
[2019-12-24 15:37] LABS: ALT 32 U/L (4-49); AST 39 U/L (17-59); African American GFR (CKD) >90 (>60 ml/min/1.73 sqM); Albumin 4.9 g/dL (3.5-5.0); Alkaline Phosphatase 121 U/L (38-126); Anion Gap 13 mmol/L; Blood Urea Nitrogen 15 mg/dL (9-20); Carbon Dioxide 24 mmol/L (22-30); Chloride 103 mmol/L (98-107); Glucose 169 mg/dL (74-99); Non-African American GFR(CKD) >90 (>60 ml/min/1.73 sqM); Potassium 3.9 mmol/L (3.5-5.1); Sodium 140 mmol/L (137-145); Total Bilirubin 0.7 mg/dL (0.2-1.3); Total Protein 7.9 g/dL (6.3-8.2)
[2019-12-24 16:03] VITALS: BP 159/98; PULSE 86; RESP 16
[2019-12-24 16:16] LABS: Appearance,Urine Clear (Clear); Bilirubin,Urine Negative (Negative); Blood,Urine Negative (Negative); Color,Urine Light Yellow; Glucose,Urine (UA) 1+ (Negative); Ketones,Urine Trace (Negative); Leukocyte Esterase,Urine Negative (Negative); Nitrite,Urine Negative (Negative); PH, Urine 7.5 (5.0-8.0); Protein,Urine Negative (Negative); Specific Gravity,Urine 1.006 (1.001-1.035); Urobilinogen,Urine <2.0 mg/dL (<2.0)
== END 2019-12-24 16:48 | disposition home or self-care (01) ==
LOC: EC 14:27
DX: E86.0 Dehydration (principal); S09.90XA Unspecified injury of head, initial encounter; D72.829 Elevated white blood cell count, unspecified; E11.9 Type 2 diabetes mellitus without complications; F17.200 Nicotine dependence, unspecified, uncomplicated; F41.9 Anxiety disorder, unspecified; F31.9 Bipolar disorder, unspecified; K21.9 Gastro-esophageal reflux disease without esophagitis; Z79.899 Other long term (current) drug therapy; Z21 Asymptomatic human immunodeficiency virus [HIV] infection status; W19.XXXA Unspecified fall, initial encounter
CPT/HCPCS: 36415; 70450; 80053; 81003; 84484; 85025; 93005; 96360; 99285

== ENCOUNTER 2019-12-25 11:30 | Emergency (ER) | payer MEDICARE, BC ==
[2019-12-25 11:35] VITALS: TEMP 99
[2019-12-25] MEDS ORDERED: MECLIZINE 12.5 MG TAB PO STA (12:20)
[2019-12-25] MEDS ORDERED: LISINOPRIL 10 MG TAB PO STA (12:20)
--- NOTE | 2019-12-25 12:29 | ED ---
General Adult HPI - General Chief complaint: Recheck/Abnormal Lab/Rx Stated complaint: hypertension Time Seen by Provider: 12/25/19 11:36 Source: patient Mode of arrival: ambulatory Limitations: no limitations - History of Present Illness Initial comments: 54-year-old male patient past medical history significant for COPD, diabetes, acid reflux, hypertension, HIV presents to the emergency department today for evaluation of elevated blood pressure. Patient is also reporting some dizziness. Patient states he does have chronic dizziness and was seen and evaluated for this yesterday as his symptoms worsened over the last 3-4 days. Patient states he is also having blurred vision with this. Denies any chest pain or shortness of breath. Denies numbness, tingling, weakness to his extremities. He denies any headache or syncope. Patient does take blood pressure medication, took his dose at 10:00 this morning. Patient denies any recent rash, fever, chills, cough, abdominal pain, nausea, vomiting, diarrhea, constipation, back pain, weakness, hematuria, dysuria, urinary urgency, urinary frequency, or any other complaints. - Related Data Home Medications Medication Instructions Recorded Confirmed FLUoxetine HCL [PROzac] 40 mg PO BID 01/12/14 12/25/19 Mirtazapine [Remeron] 15 mg PO HS 01/12/14 12/25/19 Omeprazole [PriLOSEC] 40 mg PO DAILY 01/12/14 12/25/19 Baclofen [Lioresal] 20 mg PO BID 12/24/19 12/25/19 Bictegrav/Emtricit/Tenofov Ala 1 tab PO DAILY 12/24/19 12/25/19 [Biktarvy 50-200-25 mg Tablet] Diclofenac Sodium Gel [Voltaren 2 gm TOPICAL TID 12/24/19 12/25/19 Gel] Lisinopril [Zestril] 5 mg PO DAILY 12/24/19 12/25/19 Propranolol [Inderal] 20 mg PO HS 12/24/19 12/25/19 lamoTRIgine 200 mg PO HS 12/24/19 12/25/19 rOPINIRole HCL [Requip] 0.5 mg PO HS PRN 12/24/19 12/25/19 Previous Rx's Medication Instructions Recorded Meclizine [Antivert] 25 mg PO TID #15 tab 12/25/19 Allergies Allergy/AdvReac Type Severity Reaction Status Date / Time No Known Allergies Allergy Verified 12/25/19 12:50 Review of Systems ROS Statement: Those systems with pertinent positive or pertinent negative responses have been documented in the HPI. ROS Other: All systems not noted in ROS Statement are negative. Past Medical History Past Medical History: COPD, Diabetes Mellitus, GERD/Reflux, Hypertension Additional Past Medical History / Comment(s): HIV positive History of Any Multi-Drug Resistant Organisms: None Reported Past Surgical History: Tonsillectomy Additional Past Surgical History / Comment(s): HEMORRIOD BANDED Past Anesthesia/Blood Transfusion Reactions: No Reported Reaction Past Psychological History: ADD/ADHD, Anxiety, Bipolar, Depression, Panic Disorder Smoking Status: Current every day smoker Past Alcohol Use History: None Reported Past Drug Use History: Marijuana - Past Family History Father Family Medical History: CVA/TIA, Hypertension Mother Family Medical History: Hypertension General Exam Limitations: no limitations General appearance: alert, in no apparent distress, other (This is a well- developed, well-nourished adult male patient in no acute distress. Vital signs upon presentation are temperature 99.0F, pulse 82, respirations 16, blood pressure 176/109, pulse ox 98% on room air.) Eye exam: Present: normal appearance, PERRL, EOMI. Absent: scleral icterus, conjunctival injection, periorbital swelling Respiratory exam: Present: normal lung sounds bilaterally. Absent: respiratory distress, wheezes, rales, rhonchi, stridor Cardiovascular Exam: Present: regular rate, normal rhythm, normal heart sounds. Absent: systolic murmur, diastolic murmur, rubs, gallop, clicks GI/Abdominal exam: Present: soft, normal bowel sounds. Absent: distended, tenderness, guarding, rebound, rigid Neurological exam: Present: alert, oriented X3, CN II-XII intact Expanded Speech: Present: fluid speech Cranial nerves: EOM's Intact: Normal, Tongue Deviation: Normal Motor strength exam: RUE: 5, LUE: 5, RLE: 5, LLE: 5 Eye Response: (4) open spontaneously Motor Response: (6) obeys commands Verbal Response: (5) oriented [place] Total: 15 Psychiatric exam: Present: normal affect, normal mood Skin exam: Present: warm, dry, intact, normal color. Absent: rash Course Vital Signs 12/25/19 11:31 Temperature 99.0 F Pulse Rate 82 Respiratory 16 Rate Blood Pressure 176/109 O2 Sat by Pulse 98 Oximetry Medical Decision Making - Medical Decision Making 54-year-old male patient presents medical history significant for hypertension and HIV presents to the emergency department today for evaluation of elevated blood pressure. States his blood pressures in the 150 systolic over the 100s at home. He did take his blood pressure medication which was 5 mg of lisinopril around 10 AM. He also is reporting some dizziness which she was evaluated for yesterday, states it is improved today. He does have a chronic dizziness which she has had MRI and vestibular testing for in the past. He does see Dr. Conrad for neurology. Blood pressure here is similar to his home readings. We did give additional dose of lisinopril. To be discharged to maintain a log of blood pressures for his primary care physician. He is instructed to double his lisinopril twice daily unless his blood pressures are low. He'll be given a prescription for meclizine which did seem to work for his dizziness yesterday. He is instructed to follow-up with his primary care physician for recheck in 1-2 days. He is instructed to follow-up with his neurologist for further evaluation as soon as possible. Return parameters were discussed in detail. He verbalizes understanding and agrees with this plan. Disposition Clinical Impression: Hypertension, Dizziness Disposition: HOME SELF-CARE Condition: Good Instructions (If sedation given, give patient instructions): Hypertension (ED), Dizziness (ED) Additional Instructions: Take medications as instructed. Increase her lisinopril to 2 tablets once daily. Keep a log of your blood pressures to submit to primary care physician for evaluation and medication dosing. Follow-up with her primary care physician for recheck in 1-2 days. Follow-up with your neurologist for further evaluation as soon as possible. Return to the emergency department immediately for any new, worsening, or concerning symptoms. Prescriptions: Meclizine [Antivert] 25 mg PO TID #15 tab Is patient prescribed a controlled substance at d/c from ED?: No Referrals: Lety Moore MD [Primary Care Provider] - 1-2 days Salvador Conrad DO [STAFF PHYSICIAN] - 1-2 days Time of Disposition: 12:56
[2019-12-25 13:32] VITALS: BP 152/100; PULSE 83; RESP 18
== END 2019-12-25 13:31 | disposition home or self-care (01) ==
LOC: EC 11:30
DX: I10 Essential (primary) hypertension (principal); R42 Dizziness and giddiness; H53.8 Other visual disturbances; F41.9 Anxiety disorder, unspecified; F31.9 Bipolar disorder, unspecified; F41.0 Panic disorder [episodic paroxysmal anxiety]; K21.9 Gastro-esophageal reflux disease without esophagitis; F17.200 Nicotine dependence, unspecified, uncomplicated; Z21 Asymptomatic human immunodeficiency virus [HIV] infection status; Z79.899 Other long term (current) drug therapy; Z82.49 Family history of ischemic heart disease and other diseases of the circulatory system
CPT/HCPCS: 99283

== ENCOUNTER → 2020-01-30 | Outpatient (CLI) | payer MEDICARE, BC ==
[2020-01-30 14:55] LABS: Basophils # (A) 0.1 k/uL (0-0.2); Basophils % (A) 1 %; Eosinophils # (A) 0.3 k/uL (0-0.7); Eosinophils % (A) 4 %; HCT 42.3 % (39.0-53.0); HGB 14.3 gm/dL (13.0-17.5); Lymphocytes # (A) 1.6 k/uL (1.0-4.8); Lymphocytes % (A) 19 %; MCHC 33.7 g/dL (31.0-37.0); MCV 97.8 fL (80.0-100.0); Mean Platelet Volume 6.9; Monocytes # (A) 0.5 k/uL (0-1.0); Monocytes % (A) 6 %; Neutrophils # (A) 5.8 k/uL (1.3-7.7); Neutrophils % (A) 69 %; Platelet Count 260 k/uL (150-450); RBC 4.33 m/uL (4.30-5.90); RDW 12.3 % (11.5-15.5); WBC 8.4 k/uL (3.8-10.6)
[2020-01-30 20:21] LABS: African American GFR (CKD) 88.4 (60.0-200.0); Albumin 4.5 g/dL (3.80-4.90); Albumin/Globulin Ratio 2.5 (1.60-3.17); Anion Gap 6.5 mmol/L (4.00-12.00); BUN/Creat Ratio 15.45 Ratio (12.00-20.00); Calcium 9.4 mg/dL (8.7-10.3); Carbon Dioxide 27.5 mmol/L (21.6-31.8); Globulin 1.8 g/dL (1.6-3.3); Non-African American GFR(CKD) 76.2 (60.0-200.0); Potassium 3.8 mmol/L (3.5-5.5); Total Bilirubin 0.5 mg/dL (0.3-1.2); Total Protein 6.3 g/dL (6.2-8.2)
[2020-01-31 11:34] LABS: T4/T8 Ratio (CD4:CD8) 2.1 (1.0-3.7)
== END | disposition home or self-care (01) ==
LOC: LABWHC1 14:13
PROVIDERS: ATTEND Nurse Practitioner Family
DX: I10 Essential (primary) hypertension (principal); B20 Human immunodeficiency virus [HIV] disease; R61 Generalized hyperhidrosis
CPT/HCPCS: 36415; 80053; 85025; 86360; 87536

== ENCOUNTER → 2020-03-01 | Outpatient (CLI) | payer MEDICARE, BC ==
--- NOTE | 2020-03-01 09:44 | MR ---
EXAMINATION TYPE: MR brain/cspine wo/w DATE OF EXAM: 03/01/2020 COMPARISON: Prior MR brain 03/24/2019, prior MR cervical spine 02/14/2019 HISTORY: Neck pain, dizziness TECHNIQUE: Multiplanar, multisequence images of the brain and brainstem and cervical spine is performed without and with IV contrast, utilizing 7 mL intravenous Gadavist . FINDINGS: Brain MRI: Diffusion weighted images demonstrate no evidence of a recent infarct or other diffusion a bnormality. There is no extra-axial fluid collection or interval change in white matter signal abnor mality, diffuse periventricular white matter hyperintensity is mild as on prior exam. The ventricula r system and cisternal spaces are normal in size and appearance. The brain volume is age appropriate . Midline structures demonstrate normal morphology. The craniocervical junction appears within normal limits. Post contrast images demonstrate no abnormal enhancement. The dural venous sinuses appear pa tent. The visualized sinuses are markable for minimal inflammatory change left maxillary sinus and th e globes are intact. Right maxillary sinus abnormality seen on prior exam is no longer seen. IMPRESSION: Mild sinus disease. Stable findings. Cervical spine MRI: Exam is stable. Cervical cord signal is normal. There is no abnormal enhancement. The vertebral roberth s show stable alignment, height, bone marrow signal. Loss of disc height and signal is present at C5-6 with associated spondylosis. Posterior extension of endplate disc complex contacts the anterior cervical cord at C5-6 as on prior exam, there is foramin al encroachment due to uncovertebral joint hypertrophy left greater than right as on prior. Moderate spinal stenosis. C3-4 shows a posterior broad-based disc bulge, posterior extension of endplate disc complex somewhat eccentric toward the right causing mild anterior mass effect on the thecal sac. Mild right-sided fora tessy encroachment. C4-5 shows lateral extension of endplate disc complex towards the left causing anterolateral mass eff ect on the thecal sac and contributing to left-sided foraminal encroachment. C6-7: Posterior extension of broad-based disc bulge causes mild anterior mass effect thecal sac. Ther e is bilateral foraminal encroachment. C7-T1 and C2-3 are essentially unremarkable. IMPRESSION: Stable degenerative disc disease, foraminal encroachment.
== END | disposition home or self-care (01) ==
LOC: RADMRIMAIN 08:03
PROVIDERS: ATTEND Psychiatry & Neurology Neurology
DX: M50.322 Other cervical disc degeneration at C5-C6 level (principal); M48.02 Spinal stenosis, cervical region; R42 Dizziness and giddiness; R26.89 Other abnormalities of gait and mobility; R53.1 Weakness; R29.2 Abnormal reflex; M54.2 Cervicalgia
CPT/HCPCS: 70553; 72156; A9585

== ENCOUNTER 2020-08-23 07:04 | Day surgery (SDC) | payer MEDICARE, BC ==
[2020-08-21 12:11] VITALS: BMI 25.1
[~2020-08-23 07:04] MED LIST: LACTATED RINGERS 1,000 ML IV SCH; LIDOCAINE 1% (10MG/ML) FOR IV START INTRADERMA PRN
[2020-08-23 07:30] VITALS: TEMP 98
[2020-08-23 07:43] LABS: Glucose,Whole Blood 177 mg/dL (75-99)
[2020-08-23] MEDS ORDERED: PROPOFOL 10 MG/ML 20 ML VIAL IV ONE (08:22)
--- NOTE | 2020-08-23 08:23 | P.GSHP ---
History of Present Illness H&P Date: 08/23/20 Chief Complaint: . GERD, Screening colonoscopy This a 55-year-old male presents today for EGD and screening colonoscopy. He has issues with GERD. Past Medical History Past Medical History: COPD, Diabetes Mellitus, GERD/Reflux, Hypertension, Sleep Apnea/CPAP/BIPAP Additional Past Medical History / Comment(s): HIV positive, DOESN'T USE C PAP MACHINE, DIET CONTROLLED DIABETIC, History of Any Multi-Drug Resistant Organisms: None Reported Past Surgical History: Tonsillectomy Additional Past Surgical History / Comment(s): HEMORRHOID SURGERY Past Anesthesia/Blood Transfusion Reactions: No Reported Reaction Smoking Status: Former smoker - Past Family History Father Family Medical History: CVA/TIA, Hypertension Mother Family Medical History: Hypertension Medications and Allergies Home Medications Medication Instructions Recorded Confirmed Type FLUoxetine HCL [PROzac] 80 mg PO HS 01/12/14 08/21/20 History Mirtazapine [Remeron] 15 mg PO HS 01/12/14 08/21/20 History Omeprazole [PriLOSEC] 40 mg PO DAILY 01/12/14 08/21/20 History Bictegrav/Emtricit/Tenofov Ala 1 tab PO HS 12/24/19 08/21/20 History [Biktarvy 50-200-25 mg Tablet] Propranolol [Inderal] 20 mg PO HS 12/24/19 08/21/20 History lamoTRIgine 200 mg PO BID 12/24/19 08/21/20 History lisinopriL [Zestril] 5 mg PO DAILY 12/24/19 08/21/20 History rOPINIRole HCL [Requip] 0.5 mg PO HS PRN 12/24/19 08/21/20 History Hydrochlorothiazide 12.5 mg PO DAILY 08/21/20 08/21/20 History [hydroCHLOROthiazide] Allergies Allergy/AdvReac Type Severity Reaction Status Date / Time No Known Allergies Allergy Verified 08/23/20 07:18 Surgical - Exam Vital Signs Temp Pulse Resp BP Pulse Ox 98.0 F 68 16 153/79 98 08/23/20 07:25 08/23/20 07:25 08/23/20 07:25 08/23/20 07:25 08/23/20 07:25 - General well developed, well nourished, no distress - Eyes PERRL - ENT normal pinna - Neck no masses - Respiratory normal expansion - Cardiovascular Rhythm: regular - Abdomen Abdomen: soft, non tender Results - Labs Abnormal Lab Results - Last 24 Hours (Table) 08/23/20 Range/Units 07:37 POC Glucose (mg/dL) 177 H (75-99) mg/dL Assessment and Plan Assessment: GERD. We'll perform EGD. We'll also perform screening colonoscopy.
--- NOTE | 2020-08-23 08:43 | P.OP ---
Date of Procedure: 08/23/20 Preoperative Diagnosis: GERD Screening colonoscopy Postoperative Diagnosis: Antral gastritis Mild esophagitis Left colon polyp Procedure(s) Performed: EGD Colonoscopy Anesthesia: MAC Surgeon: Dagoberto Thorpe Pathology: other (Antrum, esophagus, left colon polyp) Condition: stable Disposition: PACU Description of Procedure: Patient's placed on the endoscopy table in the lateral position. He received IV sedation. The gastroscope placed oropharynx passed into the esophagus and stomach. Scope was then placed through the pylorus. The first and second portion of the duodenum appeared normal. Scope was brought back the antrum this. Mildly inflamed. A biopsies performed. Scope was unretroflexed and the remainder of the stomach appeared normal. There was no significant hiatal hernia. The GE junction was at 40 cm. The distal esophagus appeared mildly inflamed a biopsies performed. The proximal esophagus appeared normal. Scope was withdrawn for patient. Next digital rectal exam was performed which revealed a patulous anus. Flexible colonoscope was then placed patient anus passed rotator entire colon. The ileocecal valve was visualized. The cecum, ascending and transverse colon appeared normal. In the left colon there was a small sessile polyp removed with cold forcep. Remainder of the left colon appeared normal. The sigmoid colon appeared normal. Scope summer back the rectum was normal. Scope was withdrawn for patient.
[2020-08-23 09:19] VITALS: BP 117/74; PULSE 77; RESP 14
== END 2020-08-23 09:21 | disposition home or self-care (01) ==
LOC: ORWHC2ENDO 07:04
PROVIDERS: ATTEND Surgery
DX: Z12.11 Encounter for screening for malignant neoplasm of colon (principal); K29.50 Unspecified chronic gastritis without bleeding; K21.00 Gastro-esophageal reflux disease with esophagitis, without bleeding; D12.4 Benign neoplasm of descending colon; J44.9 Chronic obstructive pulmonary disease, unspecified; E11.9 Type 2 diabetes mellitus without complications; I10 Essential (primary) hypertension; G47.30 Sleep apnea, unspecified; B20 Human immunodeficiency virus [HIV] disease; Z98.890 Other specified postprocedural states; Z90.89 Acquired absence of other organs; Z87.891 Personal history of nicotine dependence; Z82.3 Family history of stroke; Z82.49 Family history of ischemic heart disease and other diseases of the circulatory system; F41.9 Anxiety disorder, unspecified; F31.9 Bipolar disorder, unspecified; F90.9 Attention-deficit hyperactivity disorder, unspecified type; R11.0 Nausea; Z99.89 Dependence on other enabling machines and devices; F41.0 Panic disorder [episodic paroxysmal anxiety]; Z79.899 Other long term (current) drug therapy
CPT/HCPCS: 43239; 45380; 88305

== ENCOUNTER → 2020-12-06 | Outpatient (CLI) | payer MEDICARE, BC ==
[2020-12-06 19:23] LABS: Basophils # (A) 0.04 X 10*3/uL (0.00-0.10); Basophils % (A) 0.6 %; Eosinophils # (A) 0.18 X 10*3/uL (0.04-0.35); Eosinophils % (A) 2.7 %; HCT 46.4 % (39.6-50.0); HGB 15.6 g/dL (13.0-17.0); Lymphocytes # (A) 1.33 X 10*3/uL (0.90-5.00); Lymphocytes % (A) 20.2 %; MCH 33.2 pg (27.0-32.0); MCHC 33.6 g/dL (32.0-37.0); MCV 98.7 fL (80.0-97.0); Mean Platelet Volume 10.3 fL (9.5-12.2); Monocytes % (A) 7.6 %; Neutrophils % (A) 68.3 %; Platelet Count 270 X 10*3/uL (140-440); RDW 11.4 % (11.5-14.5); WBC 6.59 X 10*3/uL (4.50-10.00)
[2020-12-07 00:07] LABS: African American GFR (CKD) 88.4 (60.0-200.0); Anion Gap 10.1 mmol/L (4.00-12.00); BUN/Creat Ratio 11.82 Ratio (12.00-20.00); Calcium 9.6 mg/dL (8.7-10.3); Carbon Dioxide 24.9 mmol/L (21.6-31.8); Non-African American GFR(CKD) 76.2 (60.0-200.0); Potassium 4.2 mmol/L (3.5-5.5)
[2020-12-07 12:19] LABS: T4/T8 Ratio (CD4:CD8) 1.5 (1.0-3.7)
[2020-12-07 13:19] LABS: HIV-1 RNA DETECTED (Not detected); HIV-1 RNA, Quant <40 Copies/mL (<40)
== END | disposition home or self-care (01) ==
LOC: LABWHC1 12:51
PROVIDERS: ATTEND Internal Medicine Infectious Disease
DX: B20 Human immunodeficiency virus [HIV] disease (principal)
CPT/HCPCS: 36415; 80048; 84450; 84460; 85025; 86360; 87536

== ENCOUNTER → 2021-04-16 | Outpatient (CLI) | payer MEDICARE, BC ==
[2021-04-16 22:59] LABS: Basophils # (A) 0.06 X 10*3/uL (0.00-0.10); Basophils % (A) 0.6 %; Eosinophils # (A) 0.18 X 10*3/uL (0.04-0.35); Eosinophils % (A) 1.8 %; HCT 46.1 % (39.6-50.0); HGB 15.9 g/dL (13.0-17.0); Lymphocytes # (A) 1.46 X 10*3/uL (0.90-5.00); Lymphocytes % (A) 14.4 %; MCH 32.6 pg (27.0-32.0); MCHC 34.5 g/dL (32.0-37.0); MCV 94.7 fL (80.0-97.0); Mean Platelet Volume 10.4 fL (9.5-12.2); Monocytes # (A) 0.46 X 10*3/uL (0.20-1.00); Monocytes % (A) 4.5 %; Neutrophils % (A) 77.8 %; Platelet Count 246 X 10*3/uL (140-440); RBC 4.87 X 10*6/uL (4.40-5.60); RDW 11.9 % (11.5-14.5); WBC 10.15 X 10*3/uL (4.50-10.00)
[2021-04-17 05:37] LABS: African American GFR (CKD) 86.8 (60.0-200.0); Anion Gap 18.4 mmol/L (4.00-12.00); BUN/Creat Ratio 16.49 Ratio (12.00-20.00); Blood Urea Nitrogen 18.3 mg/dL (9.0-27.0); Calcium 9.3 mg/dL (8.7-10.3); Carbon Dioxide 18.7 mmol/L (21.6-31.8); Non-African American GFR(CKD) 74.9 (60.0-200.0); Potassium 3.9 mmol/L (3.5-5.5)
[2021-04-17 14:50] LABS: T4/T8 Ratio (CD4:CD8) 1.7 (1.0-3.7)
[2021-04-17 19:39] LABS: HIV-1 RNA Not detected (Not detected); HIV-1 RNA, Quant <40 Copies/mL (<40)
== END | disposition home or self-care (01) ==
LOC: LABWHC1 15:33
PROVIDERS: ATTEND Internal Medicine Infectious Disease
DX: B20 Human immunodeficiency virus [HIV] disease (principal)
CPT/HCPCS: 36415; 80048; 85025; 86360; 87536

== ENCOUNTER → 2021-08-21 | Outpatient (CLI) | payer MEDICARE, BC ==
[2021-08-21 19:28] LABS: Hepatitis B Surface AB- Quant 3.5 mIU/mL; Hepatitis B Surface Antibody Nonreactive (Nonreactive)
[2021-08-21 20:29] LABS: ALT 36 U/L (10-49); AST 35 U/L (14-35); Albumin 4.6 g/dL (3.8-4.9); Albumin/Globulin Ratio 2.14 (1.60-3.17); Alkaline Phosphatase 131 U/L (41-126); Bilirubin, Conjugated <0.20 mg/dL (0.20-0.40); Globulin 2.1 g/dL (1.6-3.3); Total Protein 6.7 g/dL (6.2-8.2)
[2021-08-21 22:57] LABS: Hepatitis A Ab, Total Reactive (Nonreactive); Hepatitis C IgG Antibody Nonreactive (Nonreactive)
== END | disposition home or self-care (01) ==
LOC: LABWHC1 12:00
PROVIDERS: ATTEND Internal Medicine Infectious Disease
DX: K75.9 Inflammatory liver disease, unspecified (principal)
CPT/HCPCS: 36415; 80076; 86704; 86706; 86708; 86803

== ENCOUNTER → 2022-04-14 | Outpatient (CLI) | payer MEDICARE, BC ==
--- NOTE | 2022-04-15 11:40 | XR ---
EXAMINATION TYPE: XR elbow complete 3 views RT, XR cervical spine 4 views, XR shoulder complete 3 vie ws RT, XR hand limited 2 views RT DATE OF EXAM: 04/14/2022 COMPARISON: None HISTORY: 57-year-old male M47.892, M54.10. PAIN/NUMBNESS/TINGLING DOWN RUE X 2 MONTHS FINDINGS: Cervical spine: No predental space widening or prevertebral soft tissue swelling. Mild to moderate degenerative disc disease with disc space narrowing and endplate spondylosis C5-C6. Trace grade 1 retrolisthesis C5-C6. The cervicothoracic junction is obscured by the patient's shoulders and not assessed. Reversal of th e normal cervical lordosis. There is also a dextroconvex curvature of the cervical spine. Normal odon toid view of the lobe with suggestion of some joint space narrowing at the right lateral mass articul ation of C1-C2. Right shoulder: AC joint appears congruent and intact. Subacromial space is preserved. No tendinous or bursal calcifi cations. No acute fracture, subluxation, or dislocation. Some enthesopathy at the inferior glenoid tu bercle. Right elbow: No elbow joint effusion. No acute fracture, subluxation, or dislocation. Right hand: No acute fracture, subluxation, or dislocation. Joint spaces appear maintained. No periostitis or ost eolysis. IMPRESSION: 1. Cervical spine: [id number] degenerative disc disease and endplate spondylosis C5-C6. Trace d egenerative grade 1 retrolisthesis at this level. Reversal of the normal cervical lordosis. Positiona l or due to muscle spasm. Note that the cervicothoracic junction is obscured by the patient's shoulde rs and not assessed. 2. Right shoulder: No acute osseous abnormality seen. 3. Right elbow: No acute osseous abnormality seen. 4. Right hand: No acute osseous abnormality seen.
== END | disposition home or self-care (01) ==
LOC: RADXRMAIN 16:08
PROVIDERS: ATTEND Nurse Practitioner Family
DX: M50.122 Cervical disc disorder at C5-C6 level with radiculopathy (principal); M47.892 Other spondylosis, cervical region; M62.838 Other muscle spasm
CPT/HCPCS: 72040

== ENCOUNTER → 2022-05-20 | Outpatient (CLI) | payer MEDICARE, BC ==
[2022-05-20 23:59] LABS: HCT 45.8 % (39.6-50.0); HGB 16.1 g/dL (13.0-17.0); MCH 32.5 pg (27.0-32.0); MCHC 35.2 g/dL (32.0-37.0); MCV 92.3 fL (80.0-97.0); Mean Platelet Volume 10.3 fL (9.5-12.2); NRBC Per 100 WBC 0 /100 WBCS (0.0-0.0); Platelet Count 269 X 10*3/uL (140-440); RBC 4.96 X 10*6/uL (4.40-5.60); RDW 12.1 % (11.5-14.5); WBC 7.73 X 10*3/uL (4.50-10.00)
[2022-05-21] LABS: African American GFR (CKD) 87.1 (60.0-200.0); Anion Gap 9.4 mmol/L (10.00-18.00); BUN/Creat Ratio 10.55 Ratio (12.00-20.00); Blood Urea Nitrogen 11.6 mg/dL (9.0-27.0); Calcium 9.6 mg/dL (8.7-10.3); Carbon Dioxide 27.6 mmol/L (20.0-27.5); Non-African American GFR(CKD) 75.2 (60.0-200.0); Potassium 4.1 mmol/L (3.5-5.5)
[2022-05-21 00:29] LABS: Hepatitis B Surface AB- Quant 3.5 mIU/mL; Hepatitis B Surface Antibody Nonreactive (Nonreactive)
[2022-05-21 11:07] LABS: Hepatitis B Virus DNA Not detected (Not detected); Hepatitis B Virus DNA, Quant <10 IU/mL (<10); Log HBV IU/mL <1.00 (<1.00)
[2022-05-21 14:37] LABS: T Helper Cell (CD4) 1358 cell/ul (443-1471); T Helper Cell (CD4) % 51 % (35-66); T Suppressor Cell (CD8) 686 cell/ul (190-832); T Suppressor Cell (CD8) % 26 % (9-37)
== END | disposition home or self-care (01) ==
LOC: LABWHC1 15:10
PROVIDERS: ATTEND Internal Medicine Infectious Disease
DX: B20 Human immunodeficiency virus [HIV] disease (principal)
CPT/HCPCS: 36415; 80048; 85027; 86360; 86706; 87517; 87536

== ENCOUNTER → 2022-09-19 | Outpatient (CLI) | payer MEDICARE, BC ==
--- NOTE | 2022-09-20 06:05 | MR ---
EXAMINATION TYPE: MR cervical spine wo/w con DATE OF EXAM: 09/19/2022 COMPARISON: 02/14/2019 HISTORY: Pain in neck, tingling down arms CONTRAST: Standard multiplanar, multisequence MRI departmental protocol images were obtained without contrast a nd with 7.5 mL intravenous Gadavist gadolinium contrast. The cervical vertebra have fairly normal alignment there is mild disc space narrowing in the mid and lower cervical spine. There is multilevel posterior disc bulging from level of C3-C7 with variable im pingement on the spinal canal. Spinal stenosis measures 6 mm at C5-6 which is the narrowest point. No evidence of cord edema. Canal measures 8.3 mm at C4-5. No focal bone destruction. The brainstem is i ntact. Visualized cerebellum is intact. IMPRESSION: Multilevel cervical spondylotic changes with disc bulging seen from C3 to C7. Mild spinal stenosis at C5-6. No significant change compared to exam
== END | disposition home or self-care (01) ==
LOC: RADMRIMAIN 20:45
PROVIDERS: ATTEND Family Medicine
DX: M50.33 Other cervical disc degeneration, cervicothoracic region (principal); M50.31 Other cervical disc degeneration, high cervical region; M47.812 Spondylosis without myelopathy or radiculopathy, cervical region; M48.02 Spinal stenosis, cervical region
CPT/HCPCS: 72156; A9585

== ENCOUNTER → 2023-01-01 | Outpatient (CLI) | payer MEDICARE, BC ==
--- NOTE | 2023-01-01 15:58 | XR ---
EXAMINATION TYPE: XR chest 2V DATE OF EXAM: 01/01/2023 3:55 PM COMPARISON: None TECHNIQUE: XR chest 2V Frontal and lateral views of the chest. CLINICAL INDICATION:Male, 57 years old with history of J44.9; FINDINGS: Lungs/Pleura: There is flattening of the diaphragm with increased lucency of the lungs. No evidence o f pneumothorax, pleural effusion or focal consolidation. Pulmonary vascularity: Unremarkable. Heart/mediastinum: Cardiomediastinal silhouette is unremarkable. Musculoskeletal: No acute osseous pathology. IMPRESSION: 1. No acute cardiopulmonary disease process. 2. COPD changes.
== END | disposition home or self-care (01) ==
LOC: RADXRMAIN 15:45
PROVIDERS: ATTEND Nurse Practitioner Family
DX: J44.9 Chronic obstructive pulmonary disease, unspecified (principal)
CPT/HCPCS: 71046

== ENCOUNTER → 2023-01-27 | Outpatient (CLI) | payer MEDICARE, BC ==
[2023-01-27 21:55] LABS: Basophils # (A) 0.08 X 10*3/uL (0.00-0.10); Eosinophils # (A) 0.24 X 10*3/uL (0.04-0.35); Eosinophils % (A) 2.9 %; HGB 17.2 d/dL (13.0-17.0); Lymphocytes # (A) 1.86 X 10*3/uL (0.90-5.00); Lymphocytes % (A) 22.2 %; MCH 32.3 pg (27.0-32.0); MCHC 34.4 d/dL (32.0-37.0); Mean Platelet Volume 10.7 FL (9.5-12.2); Monocytes # (A) 0.53 X 10*3/uL (0.20-1.00); Monocytes % (A) 6.3 %; NRBC Per 100 WBC 0 X 10*3/uL (0.00-0.01); Neutrophils # (A) 5.58 X 10*3/uL (1.80-7.70); Neutrophils % (A) 66.5 %; Platelet Count 278 X 10*3/uL (140-440); RBC 5.32 X 10*6/uL (4.40-5.60); RDW 11.9 % (11.5-14.5); WBC 8.38 X 10*3/uL (4.50-10.00)
[2023-01-27 22:14] LABS: ALT 84 U/L (10-49); AST 61 U/L (14-35); Albumin 4.4 d/dL (3.8-4.9); Albumin/Globulin Ratio 1.91 Ratio (1.60-3.17); Alkaline Phosphatase 123 U/L (41-126); BUN/Creat Ratio 11.45 Ratio (12.00-20.00); Bilirubin, Conjugated <0.20 mg/dL (0.20-0.40); Bilirubin,Unconjugated >0.20 mg/dL (0.20-1.00); Blood Urea Nitrogen 12.6 mg/dL (9.0-27.0); Calcium 9.7 mg/dL (8.7-10.3); Carbon Dioxide 21.1 mmol/L (21.6-31.8); Chloride 99 mmol/L (96-109); Globulin 2.3 d/dL (1.6-3.3); Glucose 263 mg/dL (70-110); Sodium 135 mmol/L (135-145); Total Bilirubin 0.4 mg/dL (0.3-1.2); Total Protein 6.7 d/dL (6.2-8.2)
[2023-01-28 04:28] LABS: Toxoplasma Antibody (IgG) <3.0 IU/mL (<7.2)
[2023-01-28 11:38] LABS: T Helper Cell (CD4) 896 cell/ul (443-1471); T Helper Cell (CD4) % 47 % (35-66); T Suppressor Cell (CD8) 503 cell/ul (190-832); T Suppressor Cell (CD8) % 27 % (9-37); T4/T8 Ratio (CD4:CD8) 1.8 (1.0-3.7)
[2023-01-29 07:40] LABS: HIV-1 RNA Not detected (Not detected); HIV-1 RNA, Quant <20 Copies/mL (<20); LOG HIV Copies/mL <1.30 (<1.30)
== END | disposition home or self-care (01) ==
LOC: LABWHC1 14:47
PROVIDERS: ATTEND Specialist
DX: B20 Human immunodeficiency virus [HIV] disease (principal)
CPT/HCPCS: 36415; 80048; 80076; 83605; 85025; 86360; 86777; 86780; 87536

== ENCOUNTER → 2023-08-12 | Outpatient (CLI) | payer MEDICARE, BC ==
[2023-08-13 03:48] LABS: Basophils # (A) 0.08 X 10*3/uL (0.00-0.10); Basophils % (A) 0.7 %; Eosinophils # (A) 0.23 X 10*3/uL (0.04-0.35); Eosinophils % (A) 2.1 %; HCT 44.8 % (39.6-50.0); HGB 15.8 g/dL (13.0-17.0); Lymphocytes # (A) 2.69 X 10*3/uL (0.90-5.00); Lymphocytes % (A) 24.7 %; MCH 33.4 pg (27.0-32.0); MCHC 35.3 g/dL (32.0-37.0); MCV 94.7 FL (80.0-97.0); Mean Platelet Volume 10.8 FL (9.5-12.2); Monocytes # (A) 0.81 X 10*3/uL (0.20-1.00); Monocytes % (A) 7.4 %; NRBC Per 100 WBC 0 X 10*3/uL (0.00-0.01); Neutrophils # (A) 6.96 X 10*3/uL (1.80-7.70); Platelet Count 267 X 10*3/uL (140-440); RBC 4.73 X 10*6/uL (4.40-5.60); RDW 11.9 % (11.5-14.5); WBC 10.89 X 10*3/uL (4.50-10.00)
[2023-08-13 03:49] LABS: ALT 54 U/L (10-49); AST 38 U/L (14-35); Albumin 4.3 g/dL (3.8-4.9); Albumin/Globulin Ratio 1.87 Ratio (1.60-3.17); Alkaline Phosphatase 108 U/L (41-126); BUN/Creat Ratio 13.42 Ratio (12.00-20.00); Bilirubin, Conjugated <0.20 mg/dL (0.20-0.40); Bilirubin,Unconjugated >0.20 mg/dL (0.20-1.00); Blood Urea Nitrogen 16.1 mg/dL (9.0-27.0); Calcium 9.6 mg/dL (8.7-10.3); Carbon Dioxide 23.6 mmol/L (21.6-31.8); Chloride 104 mmol/L (96-109); Globulin 2.3 g/dL (1.6-3.3); Glucose 187 mg/dL (70-110); Potassium 3.9 mmol/L (3.5-5.5); Sodium 140 mmol/L (135-145); Total Bilirubin 0.4 mg/dL (0.3-1.2); Total Protein 6.6 g/dL (6.2-8.2)
[2023-08-13 10:40] LABS: T4/T8 Ratio (CD4:CD8) 1.9 (1.0-3.7)
[2023-08-14 10:09] LABS: HIV-1 RNA DETECTED (Not detected); HIV-1 RNA, Quant <20 Copies/mL (<20); LOG HIV Copies/mL <1.30 (<1.30)
== END | disposition home or self-care (01) ==
LOC: LABWHC1 15:56
PROVIDERS: ATTEND Specialist
DX: B20 Human immunodeficiency virus [HIV] disease (principal); R74.8 Abnormal levels of other serum enzymes
CPT/HCPCS: 36415; 80048; 80076; 83605; 85025; 86360; 87536

== ENCOUNTER → 2024-09-14 | Outpatient (CLI) | payer MEDICARE, BC ==
[2024-09-14 20:39] LABS: ALT 51 U/L (10-49); AST 40 U/L (14-35); Albumin 4.5 g/dL (3.8-4.9); Alkaline Phosphatase 125 U/L (41-126); BUN/Creat Ratio 17.55 Ratio (12.00-20.00); Bilirubin, Conjugated <0.20 mg/dL (0.20-0.40); Bilirubin,Unconjugated >0.10 mg/dL (0.20-1.00); Blood Urea Nitrogen 19.3 mg/dL (9.0-27.0); Calcium 9.9 mg/dL (8.7-10.3); Carbon Dioxide 22.5 mmol/L (21.6-31.8); Chloride 102 mmol/L (96-109); Glucose 184 mg/dL (70-110); Potassium 3.9 mmol/L (3.5-5.5); Sodium 138 mmol/L (135-145); Total Bilirubin 0.3 mg/dL (0.3-1.2); Total Protein 7.2 g/dL (6.2-8.2)
[2024-09-14 20:40] LABS: Albumin/Globulin Ratio 1.67 Ratio (1.60-3.17); Globulin 2.7 g/dL (1.6-3.3)
[2024-09-14 21:34] LABS: Basophils # (A) 0.06 X 10*3/uL (0.00-0.10); Basophils % (A) 0.6 %; Eosinophils # (A) 0.15 X 10*3/uL (0.04-0.35); Eosinophils % (A) 1.4 %; HCT 46.9 % (39.6-50.0); HGB 16.5 g/dL (13.0-17.0); Lymphocytes % (A) 16.3 %; MCH 33.1 pg (27.0-32.0); MCHC 35.2 g/dL (32.0-37.0); MCV 94.2 FL (80.0-97.0); Mean Platelet Volume 10.4 FL (9.5-12.2); Monocytes # (A) 0.67 X 10*3/uL (0.20-1.00); Monocytes % (A) 6.4 %; NRBC Per 100 WBC 0 X 10*3/uL (0.00-0.01); Neutrophils # (A) 7.77 X 10*3/uL (1.80-7.70); Neutrophils % (A) 74.7 %; Platelet Count 318 X 10*3/uL (140-440); RBC 4.98 X 10*6/uL (4.40-5.60); RDW 12.1 % (11.5-14.5); WBC 10.41 X 10*3/uL (4.50-10.00)
[2024-09-15 00:57] LABS: HIV 2 AB Non-Reactive (Non-Reactive); HIV AB P24 Reactive (Non-Reactive); HIV P24 AG Non-Reactive (Non-Reactive)
== END | disposition home or self-care (01) ==
LOC: LABWHC1 15:06
PROVIDERS: ATTEND Internal Medicine Infectious Disease
DX: B20 Human immunodeficiency virus [HIV] disease (principal); R74.8 Abnormal levels of other serum enzymes
CPT/HCPCS: 36415; 80048; 80076; 85025; 86360; 86701; 87390